=== PATIENT | female | born 1950 | race Hispanic/Latino ===

== ENCOUNTER → 2024-06-08 | Outpatient (CLI) | payer OTHER ==
[~2024-06-08] MED LIST: AMLO2.5T4 PO
--- NOTE | 2024-06-08 16:11 | HMCIMG ---
CT HEART SAVER PROMOTIONAL HISTORY: Calcium scoring COMPARISON: None TECHNIQUE: Computed tomography of the heart was performed with ECG gating and suspended respiration. Postprocessing was performed on a computer workstation to obtain diastolic phase images, determine calcium score and provide a quantitative assessment of extent of disease. This CT included only the heart. HeartSaver score is 8. Please see cardiac calcium score report. The available CT chest images show no acute finding. CT was performed with one or more following dose reduction techniques: automated exposure control, adjustment of the mA and kv according to patient's size, or use of a iterative reconstruction technique.
== END | disposition home or self-care (01) ==
LOC: RAH 13:10
PROVIDERS: ATTEND Family Medicine
DX: Z13.6 Encounter for screening for cardiovascular disorders (principal)
CPT/HCPCS: 75571

== ENCOUNTER → 2024-07-27 | Outpatient (CLI) | payer MEDICARE ==
[~2024-07-27] MED LIST changes: +LIDOCAINE HCL 1% 10 ML VIAL ONE
[2024-07-27 08:34] LABS: INR <= 0.93 (0.85-1.15); PROTHROMBIN TIME 9.8 SEC (9.6-11.6)
[2024-07-27 08:35] LABS: PARTIAL THROMBOPLASTIN TIME 26.2 SEC (26.3-35.5)
--- NOTE | 2024-07-27 09:25 | NUR ---
U/S GD RT THYROID NODULE FNA TOLERATED PROCEDURE. PERFORMED BY DR Barry TAVERAS. PUNCTURE SITE TO RT NECK. X4 SPECIMEN OF RT THYROID NODULE FNA COLLECTED BY Angeli PARIS RECREATION LEADER AT BEDSIDE. END OF PROCEDURE AT 0905. DRESSING APPLIED. NO BLEEDING NOTED. DISCHARGE INSTRUCTIONS GIVEN TO PT AND DAUGHTER. VERBALIZED UNDERSTANDING. DISCHARGE VIA AMBULATORY. DENIES PAIN. A&O.
--- NOTE | 2024-07-27 12:46 | HMCIMG ---
Ultrasound-guided thyroid biopsy- Fine-needle aspiration CLINICAL INDICATION: Left thyroid nodule. COMPARISON: None. PROCEDURE: The procedure, with its potential risks and complications, was discussed with the patient, including the option of not performing the procedure. Verbal and written consent was obtained. A time-out was observed to confirm the correct patient, procedure, and site. With the patient in supine position, the target nodule was identified by ultrasound. A skin site was marked, and the skin was prepped and draped in usual sterile fashion. Infiltration of 10 cc of 1% lidocaine into the subcutaneous tissues was performed for local anesthesia. Under ultrasound guidance, 4 passes with a 22-gauge needle were performed for Fine needle aspiration Ultrasound immediately postprocedure showed no adjacent hematoma. Patient was observed for 30 minutes, and experienced no immediate postprocedure complications. IMPRESSION: Successful ultrasound-guided FNA.
== END ==
LOC: RAH 07:36
PROVIDERS: ATTEND Internal Medicine
DX: E04.1 Nontoxic single thyroid nodule (principal); I10 Essential (primary) hypertension; E78.5 Hyperlipidemia, unspecified; E66.9 Obesity, unspecified; Z68.31 Body mass index [BMI] 31.0-31.9, adult; Z79.01 Long term (current) use of anticoagulants; Z79.899 Other long term (current) drug therapy; Z98.891 History of uterine scar from previous surgery; Z90.49 Acquired absence of other specified parts of digestive tract
CPT/HCPCS: 10005; 85610; 85730; 36415; 88173; 88305; J3490; 76942